=== PATIENT | male | born 1990 | race Caucasian/White ===

== ENCOUNTER 2021-01-14 15:39 | Emergency (ER) | payer OTHER ==
[2021-01-14 15:49] VITALS: BP 107/65; PULSE 56; TEMP 97.7; BMI 26.5
[2021-01-15 11:07] LABS: SARS-CoV-2 NAA Not Detected (Not Detected)
== END 2021-01-14 16:20 | disposition home or self-care (01) ==
LOC: JERFT 15:39 → JER 15:39 → JERFT 16:20
DX: Z11.52 Encounter for screening for COVID-19 (principal)
CPT/HCPCS: 99283-25; C9803; U0003; U0005